=== PATIENT | male | born 2005 | race Caucasian/White ===

== ENCOUNTER 2024-01-28 17:58 | Emergency (ER) | payer OTHER ==
[2024-01-28 18:55] LABS: HEMATOCRIT 44.1 % (38.4-49.7); HEMOGLOBIN 16.3 g/dL (12.9-16.9); MEAN CORPUSCULAR HEMOGLOBIN 29.4 pg (31.6-35.5); MEAN CORPUSCULAR VOLUME 79.5 fL (81.4-99.0); RED BLOOD CELL COUNT 5.55 M/uL (4.14-5.76); WHITE BLOOD CELL COUNT,WBC 6.7 K/uL (3.2-11.0)
[2024-01-28 19:11] LABS: ANION GAP 9.4 mmol/L (5.0-14.0); CALCIUM 9.2 mg/dL (8.5-10.1); CREATININE 1.1 mg/dL (0.8-1.3); EST CRCL DRUG DOSING (CG) 100.15 mL/min; POTASSIUM,K 4.2 mmol/L (3.6-5.2)
[2024-01-28] MEDS: Sodium Chloride 0.9% 10 ML Syringe FLUSH PRN (19:30)
[2024-01-28] MEDS: Lactated Ringers 1,000 ML IV ONE (19:30)
== END 2024-01-28 20:38 | disposition home or self-care (01) ==
LOC: JP.ED 17:58
DX: R19.7 Diarrhea, unspecified (principal)
CPT/HCPCS: 36415; 80048; 85027; 87046; 87427; 87493; 87635; 89055; 96360; 99284; J3490; J7120; U0002